=== PATIENT | male | born 1995 | race Two or more races ===

== ENCOUNTER 2019-02-01 08:53 | Emergency (ER) | payer SELFPAY ==
[2019-02-01] MEDS ORDERED: CLONIDINE 0.1 MG/24 HR PATCH.TDWK TD ONE (09:30)
--- NOTE | 2019-02-01 09:32 | ER Document Report ---
ED Medical Screen (RME) - General Chief Complaint: Drug Abuse Stated Complaint: ANXIETY Time Seen by Provider: 02/01/19 09:26 Primary Care Provider: BEBETO GONZALEZ [Primary Care Provider] - Follow up as needed TRAVEL OUTSIDE OF THE [place] IN LAST 30 DAYS: No - HPI Notes: 02/01/19 09:31 Patient is a 23-year-old male with history of cocaine abuse with his last use 1.5 days ago by method of snorting who presents with his parents with complaints of feeling very anxious with stating that he had a panic attack the other day. Patient states that he did have suicidal thoughts over the weekend. No visual or auditory hallucinations. Denies drug allergies. Patient is requesting help with detox as well. Denies LANTIGUA, fever, neck pain, URI, CP, SOB, Abd pain, dysuria, back pain, or rash. I have treated and performed a rapid initial assessment of this patient. A comprehensive ED assessment and evaluation of the patient, analysis of test results and completion of medical decision making process will be conducted by additional ED providers. PHYSICAL EXAMINATION: GENERAL: Well-appearing, well-nourished and in no acute resp distress. A&Ox4. Answers questions appropriately. LUNGS: Breath sounds clear to auscultation bilaterally and equal. No wheezes rales or rhonchi. HEART: Regular rate and rhythm without murmurs, rubs, gallops. ABDOMEN: Soft, nondistended abdomen. No guarding, no rebound. Normal bowel sounds present. No CVA tenderness bilaterally. Grossly nontender (cannot elicit thorough abd exam w/o bed, however). Extremities: No cyanosis, clubbing, or edema b/l. NEUROLOGICAL: Normal speech, normal gait. PSYCH: Anxious - Related Data Allergies/Adverse Reactions: No Known Allergies Allergy (Verified 02/01/19 09:00) Past Medical History - Social History Chew tobacco use (# tins/day): No Frequency of alcohol use: Social Drug Abuse: Cocaine, Heroin, Marijuana Renal/ Medical History: Denies: Hx Peritoneal Dialysis Physical Exam - Vital signs Vitals: Temp Pulse Resp BP Pulse Ox 98.5 F 96 16 156/107 H 98 02/01/19 09:03 02/01/19 09:03 02/01/19 09:03 02/01/19 09:03 02/01/19 09:03 Course - Vital Signs Vital signs: Temp Pulse Resp BP Pulse Ox 98.5 F 96 16 156/107 H 98 02/01/19 09:03 02/01/19 09:03 02/01/19 09:03 02/01/19 09:03 02/01/19 09:03 Doctor's Discharge - Discharge Referrals: LOCALMD,NO [Primary Care Provider] - Follow up as needed
[2019-02-01 10:06] LABS: ABSOLUTE BASOPHILS # (AUTO) 0.1 10^3/uL (0.0-0.2); ABSOLUTE EOSINOPHILS # (AUTO) 0.1 10^3/uL (0.0-0.6); ABSOLUTE LYMPHOCYTES (AUTO) 2.5 10^3/uL (0.5-4.7); ABSOLUTE MONOCYTES (AUTO) 0.9 10^3/uL (0.1-1.4); BASOPHILS % (AUTO) 0.6 % (0-2); EOSINOPHILS % (AUTO) 0.5 % (0-6); HEMATOCRIT 48.8 % (37.9-51.0); HEMOGLOBIN 16.2 g/dL (13.5-17.0); LYMPHOCYTES % (AUTO) 23.8 % (13-45); MEAN CORPUSCULAR HEMOGLOBIN 30.1 pg (27.0-33.4); MEAN CORPUSCULAR HGB CONC 33.3 g/dL (32.0-36.0); MEAN CORPUSCULAR VOLUME 91 fl (80-97); MONOCYTES % (AUTO) 8.9 % (3-13); PLATELET COUNT 425 10^3/uL (150-450); RED BLOOD COUNT 5.38 10^6/uL (4.35-5.55); RED CELL DISTRIBUTION WIDTH 13.2 % (11.5-14.0); SEGMENTED NEUTROPHILS % (AUTO) 66.2 % (42-78); TOTAL CELLS COUNTED % (AUTO) 100 %; WHITE BLOOD COUNT 10.5 10^3/uL (4.0-10.5)
--- NOTE | 2019-02-01 10:15 | ER Document Report ---
ED General <BRIEN RUEDA - Last Filed: 02/01/19 12:20> - General Mode of Arrival: Ambulatory Information source: Patient TRAVEL OUTSIDE OF THE [place] IN LAST 30 DAYS: No - HPI Onset: Other Onset/Duration: Persistent Quality of pain: No pain Associated symptoms: Chills Exacerbated by: Denies Relieved by: Denies Similar symptoms previously: No Recently seen / treated by doctor: No <MUMTAZ CUNNINGHAM - Last Filed: 02/01/19 19:46> - General Chief Complaint: Drug Abuse Stated Complaint: ANXIETY Time Seen by Provider: 02/01/19 09:26 Primary Care Provider: [facility] [Outside] - Follow up as needed (You are to go directly from the emergency dpeartment to [facility]) CARLOS,BEBETO [NO LOCAL MD] - Follow up as needed Notes: This 23 year old male presents to the emergency department with request for help with drug abuse. Patient reports that he was an occasional drinker up until this past October. In October he reports he started snorting cocaine and heroin. Reports a little bit of heroin but mostly cocaine and opiates. Patient also reports he started smoking pot and drinking a lot more alcohol. Recent reports that he last did cocaine 2 days ago. Reports he had some suicidal thoughts without a plan. Reports he has lost 32 pounds in the past 3 months. Reports he is now feeling extremely tired and is cold. Denies body aches vomiting fever diarrhea. Reports suicidal or homicidal ideations at this time. Patient is with his parents. (MUMTAZ CUNNINGHAM) - Related Data Allergies/Adverse Reactions: No Known Allergies Allergy (Verified 02/01/19 09:00) Past Medical History - General Information source: Patient - Social History Smoking Status: Former Smoker Cigarette use (# per day): No Chew tobacco use (# tins/day): No Frequency of alcohol use: Social Drug Abuse: Cocaine, Heroin, Marijuana Occupation: construction Family History: None Patient has suicidal ideation: No Patient has homicidal ideation: No - Medical History Medical History: Negative Renal/ Medical History: Denies: Hx Peritoneal Dialysis Surgical Hx: Negative <MUMTAZ CUNNINGHAM - Last Filed: 02/01/19 19:46> Review of Systems <MUMTAZ CUNNINGHAM - Last Filed: 02/01/19 19:46> - Review of Systems Notes: Review HPI for review of systems., All other systems negative (MUMTAZ CUNNINGHAM) Physical Exam <MUMTAZ CUNNINGHAM - Last Filed: 02/01/19 19:46> - Vital signs Vitals: Temp Pulse Resp BP Pulse Ox 98.5 F 96 16 156/107 H 98 02/01/19 09:03 02/01/19 09:03 02/01/19 09:03 02/01/19 09:03 02/01/19 09:03 - Notes Notes: PHYSICAL EXAMINATION: GENERAL: Well-appearing and in no acute distress HEAD: Atraumatic, normocephalic. EYES: Pupils equal round extraocular movements intact, sclera anicteric, conjunctiva are normal. ENT: nares patent, Moist mucous membranes. NECK: Normal range of motion, supple without lymphadenopathy LUNGS: CTAB and equal. No wheezes rales or rhonchi. HEART: Regular rate and rhythm without murmurs ABDOMEN: Soft, no tenderness. No guarding, no rebound EXTREMITIES: Normal range of motion, NEUROLOGICAL: Cranial nerves grossly intact. Normal sensory/motor exams. PSYCH: Normal mood, normal affect. SKIN: Warm, Dry, normal turgor, no rashes or lesions noted (MUMTAZ CUNNINGHAM) Course - Laboratory Result Diagrams: 02/01/19 09:57 02/01/19 09:57 <BRIEN RUEDA - Last Filed: 02/01/19 12:20> - Laboratory Result Diagrams: 02/01/19 09:57 02/01/19 09:57 - Diagnostic Test Radiology reviewed: Image reviewed, Reports reviewed - EKG Interpretation by Me EKG shows normal: Sinus rhythm Rate: Normal Rhythm: NSR <MUMTAZ CUNNINGHAM - Last Filed: 02/01/19 19:46> - Re-evaluation Re-evalutation: 02/01/19 10:12 23-year-old male presents with test for help with drug abuse. Reports he started doing marijuana cocaine heroin and opiates this past October. Reports he is lost 32 pounds in the last 3 months. Patient reports he just started hanging with the wrong crowd. He reports up until October he would drink occasionally but never did drugs. He reports he is feeling very fatigued now hungry and chills. Denies body aches. Denies vomiting. Patient is here with his parents. Will obtain labs and evaluated by mental health for outpatient treatment for drug abuse Labs unremarkable. Patient was deemed to be able to be discharged for outpatient treatment after evaluation by behavioral health. He was discharged with information for community resources. His parents are at his side and will take him to be treated. 02/01/19 09:57 02/01/19 09:57 MCV 91 fl (80-97) 02/01/19 09:57 MCH 30.1 pg (27.0-33.4) 02/01/19 09:57 MCHC 33.3 g/dL (32.0-36.0) 02/01/19 09:57 RDW 13.2 % (11.5-14.0) 02/01/19 09:57 Seg Neutrophils % 66.2 % (42-78) 02/01/19 09:57 Lymphocytes % 23.8 % (13-45) 02/01/19 09:57 Monocytes % 8.9 % (3-13) 02/01/19 09:57 Eosinophils % 0.5 % (0-6) 02/01/19 09:57 Basophils % 0.6 % (0-2) 02/01/19 09:57 Absolute Neutrophils 7.0 10^3/uL (1.7-8.2) 02/01/19 09:57 Absolute Lymphocytes 2.5 10^3/uL (0.5-4.7) 02/01/19 09:57 Absolute Monocytes 0.9 10^3/uL (0.1-1.4) 02/01/19 09:57 Absolute Eosinophils 0.1 10^3/uL (0.0-0.6) 02/01/19 09:57 Absolute Basophils 0.1 10^3/uL (0.0-0.2) 02/01/19 09:57 Chloride 102 mmol/L (98-107) 02/01/19 09:57 Carbon Dioxide 28 mmol/L (22-30) 02/01/19 09:57 Anion Gap 9 (5-19) 02/01/19 09:57 Est GFR ( Amer) > 60 (>60) 02/01/19 09:57 Est GFR (Non-Af Amer) > 60 (>60) 02/01/19 09:57 Glucose 103 mg/dL (75-110) 02/01/19 09:57 Calcium 10.2 mg/dL (8.4-10.2) 02/01/19 09:57 Total Bilirubin 0.4 mg/dL (0.2-1.3) 02/01/19 09:57 AST 25 U/L (17-59) 02/01/19 09:57 ALT 25 U/L (21-72) 02/01/19 09:57 Alkaline Phosphatase 111 U/L (38-126) 02/01/19 09:57 Total Protein 8.5 g/dL (6.3-8.2) H 02/01/19 09:57 Albumin 4.8 g/dL (3.5-5.0) 02/01/19 09:57 Urine Color YELLOW 02/01/19 09:57 Urine Appearance CLEAR 02/01/19 09:57 Urine pH 8.0 (5.0-9.0) 02/01/19 09:57 Ur Specific [place] 1.011 02/01/19 09:57 Urine Protein NEGATIVE mg/dL (NEGATIVE) 02/01/19 09:57 Urine Glucose (UA) NEGATIVE mg/dL (NEGATIVE) 02/01/19 09:57 Urine Ketones NEGATIVE mg/dL (NEGATIVE) 02/01/19 09:57 Urine Blood NEGATIVE (NEGATIVE) 02/01/19 09:57 Urine Nitrite NEGATIVE (NEGATIVE) 02/01/19 09:57 Ur Leukocyte Esterase NEGATIVE (NEGATIVE) 02/01/19 09:57 Urine WBC (Auto) 1 /HPF 02/01/19 09:57 Urine RBC (Auto) 1 /HPF 02/01/19 09:57 02/01/19 19:45 (MUMTAZ CUNNINGHAM) - Vital Signs Vital signs: Temp Pulse Resp BP Pulse Ox 98.6 F 107 H 18 149/91 H 100 02/01/19 12:43 02/01/19 12:43 02/01/19 12:43 02/01/19 12:43 02/01/19 12:43 - Laboratory Laboratory results interpreted by me: 02/01/19 09:57 Total Protein 8.5 H Salicylates < 1.0 L Acetaminophen < 10 L - EKG Interpretation by Me Additional EKG results interpreted by me: 02/01/19 19:[address] elevation no T wave inversion (MUMTAZ CUNNINGHAM) Discharge <ALKIRE,BRIEN - Last Filed: 02/01/19 12:20> <MUMTAZ CUNNINGHAM - Last Filed: 02/01/19 19:46> - Discharge Clinical Impression: Drug abuse, Polysubstance abuse, Cocaine abuse, Barbiturate abuse Condition: Stable Disposition: HOME, SELF-CARE Instructions: Barbiturate Abuse ([facility]), Cocaine Abuse ([facility]) Additional Instructions: You have been evaluated by both medical and behavioral health providers while in the emergency department. You have been cleared from both acute medical and psychiatric services. You requested help with substance abuse and withdrawal. You should go directly to [facility] located at [address] [place] [address] ([phone]). A referral has been sent to them and they are expecting you by 1300. COCAINE ABUSE: Cocaine causes many dangerous medical problems. Problems can occur even with "usual" amounts. Cocaine affects judgement, creating a sense of invulnerability. Cocaine users often make bad decisions that seem "great" at the time. Most cocaine users eventually will be hurt by bad job performance, damaged personal relations, crime, and unsafe sexual practices. Toxic effects of cocaine can include seizures, hallucinations, delusions, high blood pressure, heart damage, or sudden . There's always the risk of a "bad batch." But heart attacks, brain hemorrhages, or cardiac arrest can occur unpredictably even with "normal" use. Injection of cocaine is risky for abscesses, endocarditis (heart infection), pneumonia, and AIDS. Withdrawal from cocaine often causes anxiety and drug cravings. Some users become paranoid and psychotic. Many treatment programs are available, but you must make the decision to quit. Medication can be prescribed to control the symptoms of cocaine toxicity (beta blockers or benzodiazepines). Withdrawal symptoms may require t ranquilizers. NARCOTIC / OPIOID ABUSE: (you reported use) Narcotics and opioids are pain-relieving drugs that are often abused. They are addicting. Narcotics cause euphoria, but it often takes increasing amounts to "feel good" and avoid withdrawal symptoms. Overdose of narcotics causes small pupils, coma, and decreased breathing. It's a common cause of . Purity of street narcotics is unpredictable. Injection of narcotics is risky for abscesses, endocarditis (heart infection), pneumonia, and AIDS. Withdrawal from narcotics causes goose bumps, watery mouth, sweating, nasal congestion, muscle aches, abdominal cramps, vomiting, and diarrhea. There's of ten restlessness and confusion. Treatment programs are available, but you must make the decision to quit. Medication (such as clonidine) can be prescribed to control the symptoms of withdrawal. FOLLOW-UP CARE: You have requested help with substance abuse and detoxification. [facility] is a medical facility and cannot meet your needs. You verbally agreed to referral to [facility] for voluntary inpatient detoxification. A referral has been sent to the [facility] and you are to be there by 1300 as they are expecting you. If you experience worsening or a significant change in your symptoms, notify the physician immediately or return to the Emergency Department at any time for re-evaluation. Referrals: LOCALMD,NO [NO LOCAL MD] - Follow up as needed [facility] [Outside] - Follow up as needed (You are to go directly from the emergency dpeartment to [facility])
[2019-02-01 10:21] LABS: APPEARANCE,URINE CLEAR; BILIRUBIN,URINE NEGATIVE (NEGATIVE); COLOR,URINE YELLOW; GLUCOSE, URINE NEGATIVE (NEGATIVE); KETONES,URINE NEGATIVE (NEGATIVE); LEUKOCYTE ESTERASE,URINE NEGATIVE (NEGATIVE); NITRITE,URINE NEGATIVE (NEGATIVE); PROTEIN,URINE NEGATIVE (NEGATIVE); URINE SPECIFIC GRAVITY 1.011; UROBILINOGEN,URINE NEGATIVE mg/dL (<2.0)
[2019-02-01 10:32] LABS: ALANINE AMINOTRANSFERASE 25 U/L (21-72); ALBUMIN 4.8 g/dL (3.5-5.0); ALKALINE PHOSPHATASE 111 U/L (38-126); ANION GAP 9 (5-19); ASPARTATE AMINO TRANSFERASE 25 U/L (17-59); BILIRUBIN,DIRECT 0.2 mg/dL (0.0-0.4); BILIRUBIN,TOTAL 0.4 mg/dL (0.2-1.3); BLOOD UREA NITROGEN 13 mg/dL (7-20); CALCIUM 10.2 mg/dL (8.4-10.2); CARBON DIOXIDE 28 mmol/L (22-30); CHLORIDE 102 mmol/L (98-107); GLUCOSE 103 mg/dL (75-110); POTASSIUM 4.4 mmol/L (3.6-5.0); TOTAL PROTEIN 8.5 g/dL (6.3-8.2)
[2019-02-01 10:35] LABS: ACETAMINOPHEN < 10 ug/mL (10-30); ALCOHOL < 10 mg/dL (NONE DETECTED); SALICYLATE < 1.0 mg/dL (2.0-20.0)
[2019-02-01 11:03] LABS: URINE AMPHETAMINES SCREEN NEGATIVE; URINE BENZODIAZEPINES SCREEN NEGATIVE; URINE MARIJUANA (THC) SCREEN NEGATIVE; URINE METHADONE SCREEN NEGATIVE; URINE PHENCYCLIDINE SCREEN NEGATIVE
[2019-02-01 11:06] LABS: URINE BARBITURATES SCREEN UNCONFIRMED POSITIVE; URINE COCAINE SCREEN UNCONFIRMED POSITIVE
[2019-02-01 12:57] VITALS: BP 149/91
--- NOTE | 2019-02-01 14:46 | EKG REPORT ---
SEVERITY:- NORMAL ECG - SINUS RHYTHM : Confirmed by: Torie Washington MD 01-Feb-2019 14:45:50
== END 2019-02-01 12:43 | disposition home or self-care (01) ==
LOC: ER 08:53
DX: F19.10 Other psychoactive substance abuse, uncomplicated (principal); F14.10 Cocaine abuse, uncomplicated; F11.10 Opioid abuse, uncomplicated; F12.10 Cannabis abuse, uncomplicated; F41.9 Anxiety disorder, unspecified; R45.851 Suicidal ideations; R45.850 Homicidal ideations; Z87.891 Personal history of nicotine dependence
CPT/HCPCS: 93005; 99283; 36415; 80307 ×4; 85025; 80053; 81001; 93010; J3490